=== PATIENT | female | born 1995 | race Caucasian/White ===

== ENCOUNTER 2018-07-14 21:09 | Emergency (ER) | payer BC, SELFPAY ==
[2018-07-14 21:10] VITALS: BP 122/83; PULSE 66; RESP 14; TEMP 37.4; O2SAT 100; BMI 21.6
--- NOTE | 2018-07-14 23:33 | ED.DCSUM_ITS ---
History of Present Illness Chief Complaint: Female C/O Informant: Patient Onset: Weeks - 1 Context: Gradual Onset Timing: Continuous Quality: foul odor Location: vaginal Current Severity: Moderate Maximum Severity: Moderate Associated Symptoms: no discharge, pain, itching, fevers, urinary sx Narrative: Patient has an IUD and complains of left pelvic pain that has been present for about 3-4 months. The IUD was placed in [place], she is here as a college student. She has a long distance boyfriend that she is not sexually active with this past week, and since after having intercourse has noticed a foul vaginal odor. No history of GC or chlamydia, she has been tested remotely. She does not have normal periods, she spots off and on, not presently. No changes in her abdominal discomfort. Past Medical History - Allergies and Home Meds Allergies/Adverse Reactions: Allergies amoxicillin [From Augmentin] Allergy (Verified 07/14/18 21:14) Vomiting clavulanic acid [From Augmentin] Allergy (Verified 07/14/18 21:14) Vomiting Primary Care Physician: Care Physician,No Primary [Primary Care Provider] - Past Medical History: None Smoking Status: Never smoker Review of Systems General: Denies: Chills, Fever Gastrointestinal: Reports: Abdominal pain. Denies: Nausea, Vomiting, Diarrhea Genitourinary: Reports: - - foul vag odor. no discharge.. Denies: Dysuria, Hematuria, Frequency Musculoskeletal: Reports: Back pain - chronic, mild. Denies: Neck pain, Extremity Pain Physical Exam Vital Signs/Narrative: Vital Signs Temp Pulse Resp BP Pulse Ox 07/14/18 21:10 99.3 F H 66 14 122/83 H 100 Inital Vital Signs reviewed: Yes General: Well nourished, Well developed, - - well-appearing, nad Head: Normocephalic, Atraumatic Cardiovascular: Regular rate, Regular rhythm, No murmurs. Negative for: Tachycardia Respiratory: No distress, CTA bilaterally Abdomen: Soft, Nontender, Nondistended, Normal bowel sounds Skin: Normal color, No rash Neurological: Alert, Oriented x3, Cranial nerves II-XII grossly intact, Normal Strength, Normal Sensation Psychological: Normal affect Diagnostic/Tx/Re-eval - Medical Decision Making GC and Chlamydia swabs were sent, but the patient does not want empiric treatment. She would rather wait for the test results. is negative. Wet prep is also negative, but with the mucousy discharge coming from the cervical os, I think it would be reasonable to put her on antibiotics to cover bacterial vaginosis at the very least, and to have her follow-up with gynecology for this and the left pelvic pain she has been having since her IUD was placed. She is comfortable with this plan. ED Disposition - Plan for ED Patient: Disposition: Home or Assisted Living Chief Complaint: Female C/O Diagnosis: Bacterial vaginosis, Pelvic pain in female Instructions: Vaginal Infection: Bacterial Vaginosis Prescriptions: Metronidazole [Flagyl] 500 mg PO BID #14 tab Referrals: Umesh Gomez [STAFF PHYSICIAN] - As soon as possible
[2018-07-14 23:52] LABS: Internal QC Validated? YES +Cl - CLEAR BKGD; Pregnancy, Urine Negative Negative
[2018-07-15] MEDS: metroNIDAZOLE 500 MG Tablet PO (01:27)
[2018-07-15 01:28] VITALS: RESP 18
[2018-07-15 02:07] LABS: Chlamydia Trachomatis by PCR Negative (Negative); Neisserai gonorrhoeae by PCR Negative (Negative); Probe Check PASS; Sample Adequacy Control PASS; Specimen Processing Control PASS
== END 2018-07-15 01:29 | disposition home or self-care (01) ==
PROVIDERS: Emergency Provider Emergency Medicine
DX: N76.0 Acute vaginitis (principal); B96.89 Other specified bacterial agents as the cause of diseases classified elsewhere; R10.2 Pelvic and perineal pain; Z97.5 Presence of (intrauterine) contraceptive device
CPT/HCPCS: 81025; 87210; 87491; 87591; 99283

== ENCOUNTER → 2018-07-25 07:42 | Outpatient (CLI) | payer BC, SELFPAY ==
--- NOTE | 2018-07-25 07:43 | US_ITS ---
STUDY: ULTRASOUND OF THE FEMALE PELVIS - COMPLETE REASON FOR EXAM: Female, 23 years old. IUD placement. Left-sided pelvic pain. LMP: July 15, 2018. TECHNIQUE: Transabdominal and Transvaginal TECHNICAL QUALITY: Adequate. COMPARISON: None. FINDINGS: The uterus is anteverted and is in a midline position. The uterus measures 6.1 cm x 3 cm x 3 cm. Normal uterine cervix. The endometrium measures 2.5 mm in thickness, and is hyperechoic. There is no demonstrated endometrial mass. There is no demonstrated myometrial mass. I.U.D. - The patient does have an I.U.D. images within the endometrium. The right ovary is visualized. The right ovary measures 3.0 cm x 2.8 cm x 1.9 cm. There is no right ovarian cyst or ovarian mass. There is no visualized right adnexal mass or complex lesion. There is normal arterial and normal venous vascularity. The left ovary is visualized. The left ovary measures 2.7 cm x 2.4 cm x 1.7 cm. A dominant follicle is seen measuring 1 cm x 1.5 cm x 1.0 cm. There is no visualized left adnexal mass or complex lesion. There is normal arterial and normal venous vascularity. There is minimal fluid in the cul-de-sac. The pre void volume of the bladder was 530 ml. Polycystic ovary disease: No. US/Transvaginal Non- IMPRESSION: The IUD is in normal position. Dominant follicle in the left ovary. Trace amount of fluid in the pelvis. Electronically Signed: Anshul Arias MD at 15:41 EDT Tel [phone], Service support ,
--- NOTE | 2018-07-25 07:43 | US_ITS ---
STUDY: ULTRASOUND OF THE FEMALE PELVIS - COMPLETE REASON FOR EXAM: Female, 23 years old. IUD placement. Left-sided pelvic pain. LMP: July 15, 2018. TECHNIQUE: Transabdominal and Transvaginal TECHNICAL QUALITY: Adequate. COMPARISON: None. FINDINGS: The uterus is anteverted and is in a midline position. The uterus measures 6.1 cm x 3 cm x 3 cm. Normal uterine cervix. The endometrium measures 2.5 mm in thickness, and is hyperechoic. There is no demonstrated endometrial mass. There is no demonstrated myometrial mass. I.U.D. - The patient does have an I.U.D. images within the endometrium. The right ovary is visualized. The right ovary measures 3.0 cm x 2.8 cm x 1.9 cm. There is no right ovarian cyst or ovarian mass. There is no visualized right adnexal mass or complex lesion. There is normal arterial and normal venous vascularity. The left ovary is visualized. The left ovary measures 2.7 cm x 2.4 cm x 1.7 cm. A dominant follicle is seen measuring 1 cm x 1.5 cm x 1.0 cm. There is no visualized left adnexal mass or complex lesion. There is normal arterial and normal venous vascularity. There is minimal fluid in the cul-de-sac. The pre void volume of the bladder was 530 ml. Polycystic ovary disease: No. US/Pelvic (Non ) IMPRESSION: The IUD is in normal position. Dominant follicle in the left ovary. Trace amount of fluid in the pelvis. Electronically Signed: Anshul Arias MD at 15:41 EDT Tel [phone], Service support ,
== END ==
PROVIDERS: Referring Provider Nurse Practitioner Women's Health; Visit Provider Nurse Practitioner Women's Health
DX: R10.2 Pelvic and perineal pain (principal); Z30.431 Encounter for routine checking of intrauterine contraceptive device
CPT/HCPCS: 76830; 76856; 93976